=== PATIENT | male | born 1990 | race Caucasian/White ===

== ENCOUNTER 2025-02-21 15:45 | Emergency (ER) | payer OTHER ==
[~2025-02-21] VITALS: Ht 185.4 cm; Wt 76.7 kg
[2025-02-21 15:49] VITALS: TEMP 99.3
[2025-02-21 16:25] LABS: PLATELET COUNT (AUTO) 361 K/uL (150-450); RED BLOOD CELL COUNT(AUTO) 5.15 MIL/uL (4.50-5.90); RED CELL DISTRIBUTION WIDTH 13.1 % (11.5-14.5); WHITE BLOOD COUNT (AUTO) 6.9 K/uL (4.5-11.0)
[2025-02-21 16:27] LABS: CALCIUM, TOTAL 9.1 mg/dL (8.8-10.5); CREATININE 1.15 mg/dL (0.60-1.30); GLOMERULAR FILTR. RATE CALC > 60 mL/min (>60); GLUCOSE,RANDOM 93 mg/dL (70-110); SODIUM SERUM 139 mmol/L (136-145); UREA NITROGEN, BLOOD 11 mg/dL (7-18)
[2025-02-21 17:25] LABS: COVID AG,FIA SOURCE NASAL SWAB
[2025-02-21 17:45] LABS: SARS-COV2 (COVID) ANTIGEN,FIA Negative (Negative)
[2025-02-21 19:12] VITALS: BP 135/87; PULSE 92; RESP 20; O2SAT 97
== END 2025-02-21 19:37 | disposition home or self-care (01) ==
LOC: EMS 15:48
DX: F41.9 Anxiety disorder, unspecified (principal); F12.90 Cannabis use, unspecified, uncomplicated; Z98.890 Other specified postprocedural states; Z20.822 Contact with and (suspected) exposure to COVID-19; Z59.00 Homelessness unspecified
CPT/HCPCS: 99283; 87426; 80048; 85025; 36415; G0480